=== PATIENT | male | born 1940 | race African-American/Black ===

== ENCOUNTER 2020-12-19 05:39 | Inpatient (IN) ==
[2020-12-17 12:35] LABS: Basophils % 0.4 % (0.0-0.8); Eosinophils # 0.1 10*3/uL (0.0-0.87); Eosinophils % 2.8 % (0.00-10.9); Hematocrit 41.9 VOL% (42.0-52.0); Hemoglobin 14.6 GM/DL (14.0-18.0); Immature Granulocytes % 0.2 %; Immature Granulocytes Absolute 0.01 #; Lymphocytes # 1.3 10*3/uL (1.4-4.0); Lymphocytes % 26.8 % (21.2-54.2); Mean Corpuscular HGB Conc 34.8 GM/DL (32-36); Mean Corpuscular Volume 99.3 FL (87-102); Mean Platelet Volume 10.3 FL (9.6-12.0); Monocytes % 10.8 % (1.7-12.7); Platelet Count 226 T/CUMM (130-400); Red Blood Count 4.22 MC/CUMM (3.8-5.5); Red Cell Distribution Width 12.8 % (9.3-17.3); White Blood Count 4.7 T/CUMM (4-12)
[2020-12-17 12:45] LABS: Alanine Aminotransferase 19 U/L (16-61); Albumin 3.9 G/DL (3.4-5.0); Alkaline Phosphatase 107 U/L (45-117); Aspartate Amino Transferase 13 U/L (0-37); Bilirubin,Total < 0.39 MG/DL (0.2-1.0); Blood Urea Nitrogen 13 MG/DL (7-18); Calcium 11.2 MG/DL (8.5-10.1); Carbon Dioxide 31 MMOL/L (21-32); Estimated Glom Filtration Rate 94 ML/MIN; Glucose 80 MG/DL (74-106); Osmolality,Calculated 284.8 MOS/KG (273-304); Potassium 4.4 MMOL/L (3.5-5.1); Sodium 144 MMOL/L (136-145); Total Protein 6.2 G/DL (6.4-8.2)
[2020-12-19] MEDS ORDERED: cefTRIAXone 1,000 MG in SODIUM CHLORIDE 0.9% 100 ML IV ONE (06:30)
[2020-12-19] MEDS ORDERED: FAMOTIDINE 20 MG TABLET PO ONE (06:50)
[2020-12-19] MEDS ORDERED: DIAZEPAM 5 MG TABLET PO ONE (06:50)
[2020-12-19] MEDS ORDERED: amLODIPine 5 MG TABLET PO ONE (06:50)
[2020-12-19] MEDS ORDERED: LACTATED RINGERS 1,000 ML IV SCH (07:00)
[2020-12-19] MEDS ORDERED: ROCURONIUM 50 MG/5 ML VIAL IV ONE ×2 (08:49→13:54)
[2020-12-19] MEDS ORDERED: ONDANSETRON 4 MG/2 ML VIAL ONE ×2 (08:49→12:44)
[2020-12-19] MEDS ORDERED: LIDOCAINE 2% 5 ML VIAL ONE ×2 (08:49→12:44)
[2020-12-19] MEDS ORDERED: fentaNYL 100 MCG/2 ML VIAL ONE ×2 (08:49→12:45)
[2020-12-19] MEDS ORDERED: propofoL 200 MG/20 ML VIAL IV ONE ×3 (08:49→12:44)
[2020-12-19] MEDS ORDERED: SEVOFLURANE 1 UNIT/15 MINUTE INH ONE ×8 (09:23→14:39)
[2020-12-19] MEDS ORDERED: GLYCOPYRROLATE 0.4 MG/2 ML VIAL ONE ×3 (09:24→13:52)
[2020-12-19] MEDS ORDERED: NEOSTIGMINE 10 MG/10 ML VIAL ONE (09:24)
[2020-12-19] MEDS ORDERED: BELLADONNA/OPIUM 30 MG SUPP RECTAL ONE (10:26)
[2020-12-19] MEDS ORDERED: PROMETHAZINE 25 MG/1 ML VIAL IM PRN ×2 (10:56→15:02)
[2020-12-19] MEDS ORDERED: HYDROmorphone 2 MG/1 ML VIAL IV PRN (10:56)
[2020-12-19] MEDS ORDERED: ACETAMINOPHEN 325 MG TABLET PO PRN (10:56)
[2020-12-19] MEDS ORDERED: ONDANSETRON 4 MG/2 ML VIAL IV PRN ×2 (10:56→15:02)
[2020-12-19] MEDS ORDERED: BELLADONNA/OPIUM 30 MG SUPP RECTAL PRN (10:59)
[2020-12-19] MEDS ORDERED: SIMETHICONE CHEW 80 MG TABLET PO PRN (11:00)
[2020-12-19] MEDS ORDERED: oxyCODONE/ACETAMINOPHEN 5-325 MG TABLET PO PRN (11:04)
[2020-12-19 11:54] LABS: Basophils % 0.3 % (0.0-0.8); Eosinophils # 0.1 10*3/uL (0.0-0.87); Eosinophils % 3.4 % (0.00-10.9); Hematocrit 38.5 VOL% (42.0-52.0); Immature Granulocytes % 0.3 %; Immature Granulocytes Absolute 0.01 #; Lymphocytes # 1.1 10*3/uL (1.4-4.0); Mean Corpuscular HGB Conc 33.8 GM/DL (32-36); Mean Corpuscular Volume 101.3 FL (87-102); Mean Platelet Volume 9.2 FL (9.6-12.0); Monocytes % 10.8 % (1.7-12.7); Neutrophils % 54.2 % (38.7-73.9); Platelet Count 180 T/CUMM (130-400); Red Cell Distribution Width 12.8 % (9.3-17.3); White Blood Count 3.5 T/CUMM (4-12)
[2020-12-19 12:16] LABS: Calcium 11.3 MG/DL (8.5-10.1); Potassium 4.4 MMOL/L (3.5-5.1)
[2020-12-19 13:48] LABS: INR 1.1; PT Patient Result 12.7 SECS (10.5-12.0); Partial Thromboplastin Time 27.6 SECS (23.9-33.8)
[2020-12-19] MEDS ORDERED: PHENYLEPHRINE 10 MG/1 ML VIAL IV ONE (13:53)
[2020-12-19 14:10] LABS: Hematocrit 33.1 VOL% (42.0-52.0); Hemoglobin 11.4 GM/DL (14.0-18.0)
[2020-12-19] MEDS ORDERED: LACTULOSE 20 GM/30 ML UDCUP PO PRN (15:02)
[2020-12-19] MEDS ORDERED: MAGNESIUM HYDROXIDE SUSP 30 ML UDCUP PO PRN (15:02)
[2020-12-19 15:42] LABS: Basophils % 0.1 % (0.0-0.8); Eosinophils # 0.1 10*3/uL (0.0-0.87); Eosinophils % 1.1 % (0.00-10.9); Hematocrit 34.4 VOL% (42.0-52.0); Hemoglobin 11.6 GM/DL (14.0-18.0); Immature Granulocytes % 0.7 %; Immature Granulocytes Absolute 0.05 #; Lymphocytes # 1.2 10*3/uL (1.4-4.0); Mean Corpuscular HGB Conc 33.7 GM/DL (32-36); Mean Corpuscular Volume 101.2 FL (87-102); Mean Platelet Volume 9.4 FL (9.6-12.0); Monocytes % 9.6 % (1.7-12.7); Neutrophils % 71.5 % (38.7-73.9); Platelet Count 184 T/CUMM (130-400); Red Cell Distribution Width 12.8 % (9.3-17.3); White Blood Count 7.3 T/CUMM (4-12)
[2020-12-19 15:55] LABS: Calcium 10.4 MG/DL (8.5-10.1); Osmolality,Calculated 282.1 MOS/KG (273-304); Potassium 4.4 MMOL/L (3.5-5.1)
[2020-12-19] MEDS: SODIUM CHLORIDE 0.9% 1,000 ML IV SCH ×3 (16:48→22:32)
[2020-12-19] MEDS: OXYBUTYNIN 5 MG TABLET PO SCH ×2 (17:04→20:20)
[2020-12-19] MEDS: ACETAMINOPHEN 325 MG TABLET PO SCH ×2 (17:04→21:00)
[2020-12-19] MEDS: EZETIMIBE 10 MG TABLET PO SCH (20:20)
[2020-12-20 01:30] LABS: Hemoglobin 9.8 GM/DL (14.0-18.0)
[2020-12-20 03:17] LABS: Basophils % 0.1 % (0.0-0.8); Eosinophils % 0.2 % (0.00-10.9); Hematocrit 29.3 VOL% (42.0-52.0); Hemoglobin 9.9 GM/DL (14.0-18.0); Immature Granulocytes % 0.6 %; Immature Granulocytes Absolute 0.07 #; Lymphocytes # 0.8 10*3/uL (1.4-4.0); Lymphocytes % 6.3 % (21.2-54.2); Mean Corpuscular HGB Conc 33.8 GM/DL (32-36); Mean Corpuscular Volume 100.7 FL (87-102); Mean Platelet Volume 10.2 FL (9.6-12.0); Monocytes % 6.3 % (1.7-12.7); Neutrophils % 86.5 % (38.7-73.9); Platelet Count 192 T/CUMM (130-400); Red Blood Count 2.91 MC/CUMM (3.8-5.5); White Blood Count 12.5 T/CUMM (4-12)
[2020-12-20 03:39] LABS: Calcium 10.4 MG/DL (8.5-10.1); Osmolality,Calculated 284.1 MOS/KG (273-304); Potassium 4.7 MMOL/L (3.5-5.1)
[2020-12-20] MEDS: ACETAMINOPHEN 325 MG TABLET PO SCH ×4 (05:50→20:33)
[2020-12-20] MEDS: SODIUM CHLORIDE 0.9% 1,000 ML IV SCH ×2 (05:51→07:23)
[2020-12-20] MEDS: cefTRIAXone 1,000 MG in SODIUM CHLORIDE 0.9% 100 ML IV SCH (06:17)
[2020-12-20] MEDS: BICALUTAMIDE 50 MG TABLET PO SCH (09:57)
[2020-12-20] MEDS: amLODIPine 10 MG TABLET PO SCH (09:57)
[2020-12-20] MEDS: OXYBUTYNIN 5 MG TABLET PO SCH ×3 (09:57→20:33)
[2020-12-20] MEDS: FINASTERIDE 5 MG TABLET PO SCH (09:57)
[2020-12-20 12:09] LABS: Hematocrit 25.7 VOL% (42.0-52.0)
[2020-12-20] MEDS: EZETIMIBE 10 MG TABLET PO SCH (20:33)
[2020-12-20] MEDS: DOCUSATE SODIUM 100 MG CAPSULE PO SCH (20:33)
[2020-12-21] MEDS: ACETAMINOPHEN 325 MG TABLET PO SCH ×4 (03:42→21:08)
[2020-12-21 05:03] LABS: Eosinophils # 0.1 10*3/uL (0.0-0.87); Eosinophils % 1.2 % (0.00-10.9); Hematocrit 28.4 VOL% (42.0-52.0); Hemoglobin 9.9 GM/DL (14.0-18.0); Immature Granulocytes % 0.6 %; Immature Granulocytes Absolute 0.06 #; Lymphocytes # 0.8 10*3/uL (1.4-4.0); Lymphocytes % 7.6 % (21.2-54.2); Mean Corpuscular HGB Conc 34.9 GM/DL (32-36); Mean Corpuscular Volume 99.6 FL (87-102); Mean Platelet Volume 9.9 FL (9.6-12.0); Monocytes % 9.4 % (1.7-12.7); Neutrophils % 81.2 % (38.7-73.9); Platelet Count 159 T/CUMM (130-400); Red Blood Count 2.85 MC/CUMM (3.8-5.5); Red Cell Distribution Width 12.9 % (9.3-17.3); White Blood Count 10.1 T/CUMM (4-12)
[2020-12-21 05:19] LABS: Calcium 11.2 MG/DL (8.5-10.1); Osmolality,Calculated 279.1 MOS/KG (273-304); Potassium 4.6 MMOL/L (3.5-5.1)
[2020-12-21] MEDS: cefTRIAXone 1,000 MG in SODIUM CHLORIDE 0.9% 100 ML IV SCH (06:05)
[2020-12-21] MEDS: OXYBUTYNIN 5 MG TABLET PO SCH ×3 (09:07→21:07)
[2020-12-21] MEDS: DOCUSATE SODIUM 100 MG CAPSULE PO SCH ×2 (09:07→21:07)
[2020-12-21] MEDS: amLODIPine 10 MG TABLET PO SCH (09:07)
[2020-12-21] MEDS: FINASTERIDE 5 MG TABLET PO SCH (09:07)
[2020-12-21] MEDS: BICALUTAMIDE 50 MG TABLET PO SCH (09:07)
[2020-12-21] MEDS: EZETIMIBE 10 MG TABLET PO SCH (21:07)
[2020-12-22] MEDS: ACETAMINOPHEN 325 MG TABLET PO SCH ×4 (03:49→21:22)
[2020-12-22 04:55] LABS: Basophils % 0.1 % (0.0-0.8); Eosinophils # 0.1 10*3/uL (0.0-0.87); Eosinophils % 1.1 % (0.00-10.9); Hematocrit 27.6 VOL% (42.0-52.0); Hemoglobin 9.3 GM/DL (14.0-18.0); Immature Granulocytes % 0.6 %; Immature Granulocytes Absolute 0.05 #; Lymphocytes % 11.5 % (21.2-54.2); Mean Corpuscular HGB Conc 33.7 GM/DL (32-36); Monocytes % 10.5 % (1.7-12.7); Neutrophils % 76.2 % (38.7-73.9); Platelet Count 169 T/CUMM (130-400); Red Blood Count 2.68 MC/CUMM (3.8-5.5); Red Cell Distribution Width 12.7 % (9.3-17.3); White Blood Count 8.8 T/CUMM (4-12)
[2020-12-22 05:14] LABS: Calcium 11.8 MG/DL (8.5-10.1); Osmolality,Calculated 276.4 MOS/KG (273-304); Potassium 4.2 MMOL/L (3.5-5.1)
[2020-12-22] MEDS: cefTRIAXone 1,000 MG in SODIUM CHLORIDE 0.9% 100 ML IV SCH (07:49)
[2020-12-22] MEDS: amLODIPine 10 MG TABLET PO SCH (08:04)
[2020-12-22] MEDS: BICALUTAMIDE 50 MG TABLET PO SCH (08:04)
[2020-12-22] MEDS: DOCUSATE SODIUM 100 MG CAPSULE PO SCH ×2 (08:04→20:08)
[2020-12-22] MEDS: FINASTERIDE 5 MG TABLET PO SCH (08:04)
[2020-12-22] MEDS: OXYBUTYNIN 5 MG TABLET PO SCH ×3 (08:04→20:08)
[2020-12-22] MEDS: EZETIMIBE 10 MG TABLET PO SCH (20:08)
[2020-12-23] MEDS: ACETAMINOPHEN 325 MG TABLET PO SCH ×2 (03:47→10:43)
[2020-12-23 06:03] LABS: Basophils % 0.1 % (0.0-0.8); Eosinophils # 0.2 10*3/uL (0.0-0.87); Eosinophils % 2.8 % (0.00-10.9); Hematocrit 26.9 VOL% (42.0-52.0); Hemoglobin 9.2 GM/DL (14.0-18.0); Immature Granulocytes % 0.7 %; Immature Granulocytes Absolute 0.05 #; Lymphocytes # 1.1 10*3/uL (1.4-4.0); Lymphocytes % 16.2 % (21.2-54.2); Mean Corpuscular HGB Conc 34.2 GM/DL (32-36); Mean Corpuscular Volume 99.3 FL (87-102); Mean Platelet Volume 10.2 FL (9.6-12.0); Monocytes % 11.9 % (1.7-12.7); Neutrophils % 68.3 % (38.7-73.9); Platelet Count 211 T/CUMM (130-400); Red Blood Count 2.71 MC/CUMM (3.8-5.5); Red Cell Distribution Width 12.7 % (9.3-17.3); White Blood Count 6.7 T/CUMM (4-12)
[2020-12-23] MEDS: cefTRIAXone 1,000 MG in SODIUM CHLORIDE 0.9% 100 ML IV SCH (06:16)
[2020-12-23 06:18] LABS: Calcium 12.2 MG/DL (8.5-10.1); Osmolality,Calculated 277.4 MOS/KG (273-304); Potassium 4.2 MMOL/L (3.5-5.1)
[2020-12-23] MEDS: OXYBUTYNIN 5 MG TABLET PO SCH (10:38)
[2020-12-23] MEDS: BICALUTAMIDE 50 MG TABLET PO SCH (10:38)
[2020-12-23] MEDS: FINASTERIDE 5 MG TABLET PO SCH (10:38)
[2020-12-23] MEDS: DOCUSATE SODIUM 100 MG CAPSULE PO SCH (10:38)
[2020-12-23] MEDS: amLODIPine 10 MG TABLET PO SCH (10:38)
[2020-12-23 12:11] VITALS: BP 141/61
== END 2020-12-23 12:25 | disposition home or self-care (01) | DRG 988 ==
LOC: N.OR 05:39 → N.SDSINP 05:42 → N.ICU 15:02 → N.4E 12-22 11:34
PROVIDERS: ADMIT Surgery; ATTEND Surgery